=== PATIENT | female | born 1945 | race Caucasian/White ===

== ENCOUNTER 2017-01-15 08:59 | Emergency (ER) | payer MEDICARE, OTHER ==
--- NOTE | 2017-01-20 21:28 | ER ---
ADMIT: 01/15/2017 RM/LOC: ER [facility] MR#: [id number] [address] [address] TOM FERRARA [address] [place] [address] Emergency Room Report SEX: F AGE: 71 : 1945 DATE: 01/15/2017 ADDENDUM: CHIEF COMPLAINT: Nosebleed. HISTORY OF PRESENT ILLNESS: This is a 71-year-old female who has had a nosebleed for the last 3 hours. She is on Xarelto for atrial fibrillation. COURSE IN EMERGENCY ROOM: Afrin was instilled into bilateral nostrils, external pressure for about 10-15 minutes. Then I was able to view the bleeding site, did silver nitrate. At that time she sneezed, it started to bleed again. Clamped her again for 5-10 minutes, let her sit in the ER for another 10 minutes. It did not bleed again. I am sending her home with Afrin, have her do it twice a day for 3 days. Have her follow up with the ENT if nosebleeds continue to be an issue. I am also sending her home with a clamp, told her she can clamp up to 1 hour. If she cannot stop the bleeding at home, to return to the ER. CLINICAL IMPRESSION: Anterior epistaxis. KINGA Burgos / Sumeet Santos MD / neril JOB #: [id number] CC: Sumeet Santos MD, Attending Physician
== END 2017-01-15 10:40 | disposition home or self-care (01) ==
LOC: ER 08:59
PROC: 2Y41X5Z Packing of Nasal Region using Packing Material (ICD-10-PCS; principal; 2017-01-15)
DX: R04.0 Epistaxis (principal); E78.00 Pure hypercholesterolemia, unspecified; G47.30 Sleep apnea, unspecified; N18.9 Chronic kidney disease, unspecified; Z88.8 Allergy status to other drugs, medicaments and biological substances

== ENCOUNTER 2017-01-24 10:58 | Emergency (ER) | payer MEDICARE, OTHER ==
--- NOTE | 2017-01-25 11:08 | ER ---
ADMIT: 01/24/2017 RM/LOC: ER [facility] MR#: [id number] [address] [address] TOM [address] [place] [address] Emergency Room Report SEX: F AGE: 72 : 1945 DATE: 01/24/2017 ADDENDUM: A 72-year-old white female, coming in with nose bleed, it is on the right. She was here several days ago, they tried to cauterize it, she started to re-bleed, she is on Xarelto. At this time, she cannot come off the Xarelto, I put a Rhino Rocket in without problems. We stopped her bleeding. She has an appointment to see Dr. Galindo tomorrow, which she should keep. CONDITION ON DISCHARGE: Improved. Alvin Cristobal MD/ jairo JOB #: [id number] CC: Alvin Cristobal MD, Attending Physician Benjamin Galindo MD, Family Physician
== END 2017-01-24 12:30 | disposition home or self-care (01) ==
LOC: ER 10:58
PROC: 0W3Q3ZZ Control Bleeding in Respiratory Tract, Percutaneous Approach (ICD-10-PCS; principal; 2017-01-24)
DX: R04.0 Epistaxis (principal); I10 Essential (primary) hypertension; Z88.8 Allergy status to other drugs, medicaments and biological substances

== ENCOUNTER → 2017-02-04 | Outpatient (CLI) | payer MEDICARE, OTHER | END | disposition home or self-care (01) | LOC: CARD 14:45 | DX: I48.91 Unspecified atrial fibrillation (principal) ==

== ENCOUNTER → 2017-03-29 | Outpatient (CLI) | payer MEDICARE, OTHER | END | disposition home or self-care (01) | LOC: RAD.S 03-14 13:51 | DX: Z12.31 Encounter for screening mammogram for malignant neoplasm of breast (principal) ==